=== PATIENT | female | born 1985 | race Caucasian/White ===

== ENCOUNTER 2023-04-08 17:38 | Outpatient (RCR) | payer OTHER, SELFPAY | END 2023-04-08 23:59 | disposition home or self-care (01) | LOC: RPT 17:38 | PROVIDERS: ATTENDING PHYSICIAN Nurse Practitioner | DX: M54.2 Cervicalgia (principal); Z73.6 Limitation of activities due to disability | CPT/HCPCS: 97010; 97110; 97112; 97140 ==

== ENCOUNTER 2023-10-05 13:24 | Emergency (ER) | payer OTHER, SELFPAY ==
[2023-10-05 13:29] VITALS: BP 110/80
--- NOTE | 2023-10-05 14:40 | ED.GENMED ---
History of Present Illness
General
Chief Complaint: DVT/Possible Blood Clot
Time Seen by Provider: 10/05/23 14:40
History of Present Illness
History of Present Illness:
HPI: The patient presents with increasing left lower extremity tightness sensation/pain with questionable swelling over the last few weeks. She also has dyspnea on exertion which is new. She does not smoke. She has a history of factor V Leiden
for which she was tested because she has a strong family history of thromboembolism.
EXAM:
GENERAL: Well appearing in no distress
HEENT: Moist oral mucosa
CARDIOVASCULAR: No murmurs, normal heart rate, regular rhythm, No chest wall tenderness
PULMONARY: No respiratory distress, breath sounds are clear and equal
ABDOMEN: Soft with no peritoneal signs, no tenderness
NEUROLOGIC: Excellent strength all extremities, no coordination deficits
PSYCHIATRIC: Appropriate mental status, normal insight and judgement
EXTREMITIES: Minimal if any tenderness to the left lower extremity, no significant edema, moves all extremities equally
SKIN: No rash, no lesions
TIME OF INITIAL ENCOUNTER: 2:50 PM
NUMBER AND COMPLEXITY OF PROBLEMS ADDRESSED AT THE ENCOUNTER
� Chronic conditions affecting care: Factor V Leiden
� Acute Exacerbation and/or Progression of Chronic Illness: This is an acute problem
� Differential Diagnosis includes: Bronchospasm unlikely as her lungs are clear and equal with no wheeze or decrease sounds, PE possible given her history, anxiety, doubt pneumonia, doubt ACS as her EKG is unremarkable
AMOUNT AND/OR COMPLEXITY OF DATA TO BE REVIEWED AND ANALYZED
� I performed an independent evaluation of and my interpretation is:
EKG: Sinus 70, normal axis, nonspecific ST abnormality not significantly changed from 2014
CT: CTA personally viewed and agree with radiologist interpretation that there is no central PE
X-rays:
Laboratory Studies: CBC and chemistries unremarkable, hCG negative
Other: Ultrasound imaging negative for DVT
� Review of other/old records: The patient has an unremarkable C-spine x-ray other than some mild degenerative disease in 2022
� Clinical information was obtained by an independent historian: None needed
� Prescriptions/Medications Considered but not given:
� Further testing considered but not performed:
RISK OF COMPLICATIONS AND/OR MORBIDITY OR MORTALITY OF PATIENT MANAGEMENT
� Social determinants of health affecting care: Lives at home
� Discussion with other providers:
� Escalation of care including admission/observation vs risk of discharge considered: Will obtain ultrasound imaging but given the associated dyspnea on exertion with clear lungs will obtain CTA as she does have a history of
factor V Leiden. On reassessment at 5:49 PM, the patient overall has an unremarkable ED workup. There is no evidence of DVT/PE. She is to follow-up with primary care doctor. She does not appear to be in any distress at time of discharge.
Past History
Past History
ED Past Medical History: Other (Factor V Leiden deficiency, ovarian cysts)
ED Past Surgical History: Appendectomy
Patient has exhibited threatening behavior?: No
PSI?: No
Social History
Tobacco: Non-smoker
Drug: None
Personal:
Living: with roommate
Employment: Employed
Family History
Family History: Other
Phy Exam
Physical Exam
Physical Exam:
See HPI
Course
Orders/Labs/Results
Orders:
Orders
10/05/23 13:35
Electrocardiogram (*1) Urgent
Reason for Study: Shortness of Breath
EKG- Treatment ONCE
Legs, left US [US Periph Venous LOWER Ext LT] Urgent
Comment:
Reason For Exam: left foot/left calf pain for one week, no injury
10/05/23 14:54
0.9% Sodium Chloride 1000 ml [Nss] 1,000 ml IV BOLUS
10/05/23 14:55
CT Chest Pe Study Urgent
Comment:
Reason For Exam: QUISPE h/o Factor V Leiden
Test Result ONCE
10/05/23 15:27
Basic Metabolic Panel Urgent
Complete Blood Count/With Diff Urgent
HCG, Serum Qualitative Screen Urgent
Abnormal Lab Results
10/05/23
15:27
Glucose 101 H mg/dl
(70-99)
10/05/23 15:27
10/05/23 15:27
Vital Signs
Initial and Last Documented VS:
Initial Vital Signs
Temp Pulse Resp BP Pulse Ox
99.6 F 75 18 110/80 98
10/05/23 13:29 10/05/23 13:29 10/05/23 13:29 10/05/23 13:29 10/05/23 13:29
Last Documented Vital Signs
Temp Pulse Resp BP Pulse Ox
99.6 F 75 18 110/80 98
10/05/23 13:29 10/05/23 13:29 10/05/23 13:29 10/05/23 13:29 10/05/23 13:29
*Critical Care Note
Total Time (30-74mins, 75-104mins- exclusive of procedures): Not Applicable
ED Attending Note
-
Portions of this chart may have been created with voice recognition software.� Occasional wrong word or��sound alike� substitutions may have occurred due to the inherent limitations of voice recognition software.
Discharge Plan
Departure
Patient Disposition: Home (Routine Discharge)
Date of Disposition: 10/05/23
Time of Disposition: 17:46
Patient with high blood pressure during this ER visit?: No
Discharge Problem:
Left leg pain
Prescriptions:
No Action
cetirizine 10 MG tablet
10 mg PO PRN PRN (Reason: allergies)
prednisone 20 mg tablet
20 mg PO BID Qty: 14 0RF
oxycodone 5 mg tablet
5 mg PO Q4H PRN (Reason: pain) Qty: 14 0RF
cyclobenzaprine 10 mg tablet
10 mg PO TID PRN (Reason: muscle spasm) Qty: 20 0RF
Referrals:
Jovita Henning CRNP [Family Provider] -
Activity Restrictions/Additional Instructions:
The cause of your symptoms is unclear. The ultrasound of the left lower extremity shows no blood clot. The CAT scan of the chest shows no blood clot. You are not . Other basic blood work is normal. Your hemoglobin level is normal.
Return here if worse. Follow-up your primary care doctor.
Interventions
Interventions:
*Risk Screen - Suicide Last Done: 10/05/23 13:34
*General Assessment Last Done: 10/05/23 13:34
*Neglect/Abuse Screening Last Done: 10/05/23 13:34
ED- Fall Risk Assessment Last Done: 10/05/23 15:29
ED- Cardiac Assessment Last Done: 10/05/23 15:29
ED- Pulmonary Assessment Last Done: 10/05/23 15:29
ED-Peripheral Vascular Assessment Last Done: 10/05/23 15:29
ED-Skin Assessment Last Done: 10/05/23 15:29
Discharge Date and Time
Print Language: YI
[2023-10-05 15:18] VITALS: BMI 35.3
[2023-10-05] MEDS: NSS 1000 IV (15:27)
[2023-10-05 15:38] LABS: % Eosinophils 2.8 % (0-6); % Immature Granulocytes 0.4 % (0-0.5); % Lymphocytes 35.1 % (20.5-51.1); % Monocytes 7.3 % (1.7-9.3); % Neutrophils 53.4 % (42.2-75.2); Absolute Basophils 0.1 10^3/uL (0-0.2); Absolute Eosinophils 0.2 10^3/uL (0-0.7); Absolute Lymphocytes 2.8 10^3/uL (1.2-3.4); Absolute Monocytes 0.6 10^3/uL (0.1-0.6); Absolute Neutrophils 4.3 10^3/uL (1.4-6.5); Hematocrit 37.6 % (37.0-47.0); Hemoglobin 13.1 g/dL (12.0-16.0); Mean Corp Hgb Conc. 34.8 g/dL (33.0-37.0); Mean Corpuscular Hgb 28.7 pg (27.0-31.0); Mean Corpuscular Volume 82.3 fL (81.0-99.0); Mean Platelet Volume 10.4 fL (7.4-10.4); Nucleated Red Blood Cells % 0 %; Platelet Count 210 10^3/uL (130-400); Red Blood Cell Count 4.57 10^6/uL (4.20-5.40); Red Cell Dist. Width 13.1 % (11.5-14.5)
[2023-10-05 15:48] LABS: HCG, Serum Qualitative Screen Negative
[2023-10-05 15:50] LABS: Blood Urea Nitrogen 12 mg/dl (7-17); Calcium 9.8 mg/dl (8.4-10.2); Carbon Dioxide 27 mmol/L (22-30); Chloride 104 mmol/L (98-107); Estimated Creatinine Clearance > 125 ml/min; Glucose 101 mg/dl (70-99); Sodium 138 mmol/L (135-145); eGFR > 60.00
[2023-10-05 17:59] VITALS: BP 112/77
== END 2023-10-05 18:01 | disposition home or self-care (01) ==
LOC: EMR 13:24
PROVIDERS: EMERGENCY PHYSICIAN Emergency Medicine; FAMILY PHYSICIAN Nurse Practitioner
DX: M79.605 Pain in left leg (principal)
CPT/HCPCS: 99285; 96360; 71275; 80048; 84703; 85025; 93005; 93971; Q9967

== ENCOUNTER → 2023-10-14 15:41 | Outpatient (REF) | payer OTHER, SELFPAY | LOC: HWRAD 15:41 | PROVIDERS: ATTENDING PHYSICIAN Nurse Practitioner | DX: M54.2 Cervicalgia (principal); V89.2XXA Person injured in unspecified motor-vehicle accident, traffic, initial encounter | CPT/HCPCS: 72052 ==

== ENCOUNTER → 2024-03-02 07:47 | Outpatient (REF) | payer OTHER, SELFPAY | LOC: HWRAD 07:47 | PROVIDERS: ATTENDING PHYSICIAN Nurse Practitioner | DX: M79.89 Other specified soft tissue disorders (principal) | CPT/HCPCS: 76705 ==

== ENCOUNTER → 2024-09-06 14:56 | Outpatient (REF) | payer OTHER, SELFPAY | LOC: WDC 14:56 | PROVIDERS: ATTENDING PHYSICIAN Obstetrics & Gynecology Gynecology; FAMILY PHYSICIAN Nurse Practitioner | DX: Z12.31 Encounter for screening mammogram for malignant neoplasm of breast (principal) | CPT/HCPCS: 77063; 77067 ==

== ENCOUNTER → 2024-09-15 08:25 | Outpatient (REF) | payer OTHER, SELFPAY | LOC: WDC 08:25 | PROVIDERS: ATTENDING PHYSICIAN Obstetrics & Gynecology Gynecology; FAMILY PHYSICIAN Nurse Practitioner | DX: R92.8 Other abnormal and inconclusive findings on diagnostic imaging of breast (principal) | CPT/HCPCS: 76642 ==

== ENCOUNTER → 2024-10-29 15:16 | Outpatient (REF) | payer OTHER, SELFPAY | LOC: HWRAD 15:16 | PROVIDERS: ATTENDING PHYSICIAN Physician Assistant Medical | DX: R05.3 Chronic cough (principal); R53.83 Other fatigue | CPT/HCPCS: 71046 ==

== ENCOUNTER 2024-12-10 02:05 | Emergency (ER) | payer OTHER, SELFPAY ==
[2024-12-10 02:24] VITALS: BP 127/85
[2024-12-10 02:40] VITALS: BMI 34.8
[2024-12-10 02:59] LABS: Hematocrit 39.0 % (37.0-47.0); Hemoglobin 13.6 g/dL (12.0-16.0); Mean Corp Hgb Conc. 34.9 g/dL (33.0-37.0); Mean Corpuscular Volume 82.3 fL (81.0-99.0); Nucleated Red Blood Cells % 0 %; Platelet Count 192 10^3/uL (130-400); Red Cell Dist. Width 12.7 % (11.5-14.5)
[2024-12-10 03:00] VITALS: BP 117/77
[2024-12-10 03:25] LABS: Troponin I < 0.012 ng/ml
[2024-12-10 03:34] LABS: ALT (SGPT) 22 U/L (0-35); AST (SGOT) 26 U/L (14-36); Albumin 4.7 g/dl (3.5-5.0); Alkaline Phosphatase 55 U/L (38-126); Blood Urea Nitrogen 14 mg/dl (7-17); Calcium 9.5 mg/dl (8.4-10.2); Carbon Dioxide 22 mmol/L (22-30); Chloride 107 mmol/L (98-107); Estimated Creatinine Clearance > 125 ml/min; Glucose 92 mg/dl (70-99); Potassium 3.9 mmol/L (3.5-5.1); Sodium 138 mmol/L (135-145); Total Protein 7.8 g/dl (6.3-8.2); eGFR > 60.00
[2024-12-10 04:00] VITALS: BP 118/82
[2024-12-10 05:27] LABS: Troponin I < 0.012 ng/ml
--- NOTE | 2024-12-10 05:42 | ED.GENMED ---
History of Present Illness
General
Chief Complaint: Chest Problem
Source: patient
Exam Limitations: none
Time Seen by Provider: 12/10/24 02:56
Nursing documentation reviewed up to this point in time: agreed with
History of Present Illness
History of Present Illness:
Note:
CHIEF COMPLAINT(S)
Severe neck pain, indigestion, nausea, and abdominal distension.
HISTORY OF PRESENT ILLNESS
The patient is a 39-year-old female who has been experiencing neck pain for approximately one week, noting it was particularly severe during a recent holiday weekend. She describes the neck pain as intense and persistent, waking her with severe
shooting pain. In addition to the neck pain, she reported experiencing significant indigestion, nausea, and a feeling of abdominal distension that she described as her belly being 'like a drum.' These symptoms culminated in a notable episode last
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 The patient stated she did not feel quite right all day but felt particularly unwell during the night.
PAST MEDICAL AND SURGICAL HISTORY
The patient has a history significant for factor V Leiden mutation.
CHRONIC MEDICAL CONDITIONS SIGNIFICANTLY AFFECTING CARE
History of factor V Leiden.
SOCIAL DETERMINANTS AFFECTING HEALTH
The patient described job-related stress due to her role as a behavioral school counselors, managing significant work demands and responsibilities.
SOCIAL HISTORY
The patient denies smoking and drug use. She reports minimal alcohol consumption.
REVIEW OF SYSTEMS
- General: Fatigue and general malaise for about a week.
- Gastrointestinal: Nausea and significant indigestion, abdominal distension described as 'like a drum.'
- Musculoskeletal: Severe neck pain, muscle cramps in calves likened to 'Kei horses.'
- Neurological: Described feeling as if �out of body.�
PHYSICAL EXAM
General: Alert, no acute distress.
Skin: Warm, dry.
Head: Normocephalic, atraumatic.
Neck: Musculoskeletal pain on the side, assessed as tight and indicative of muscular strain.
Eye Ears, Nose, Mouth and Throat: Oral mucosa moist.
Cardiovascular: Normal peripheral perfusion, no edema.
Respiratory: Respirations are non-labored.
Gastrointestinal: Abdomen nondistended.
Back: Normal range of motion, normal alignment.
Musculoskeletal: Normal ROM, normal strength.
Neurological: Alert and oriented to person, place, time, and situation, no focal neurological deficit observed.
Psychiatric: Cooperative, appropriate mood & affect.
PROBLEM LIST
- Acute neck pain.
- Indigestion and nausea.
- Abdominal distension.
PLAN
A full assessment is underway, including a focus on musculoskeletal tension. Consideration for muscle relaxants given the described neck tightness, pending further diagnostic information including readings from diagnostic tests like the EKG which
showed a normal sinus rhythm at a rate of 80 with normal intervals and no acute ischemic changes.
DIFFERENTIAL DIAGNOSIS
The Differential Diagnosis includes, in no particular order and is not limited to:
1. Musculoskeletal strain or tension.
2. Gastroesophageal reflux disease.
3. Anxiety/stress-related somatic complaints.
4. Gallbladder disease.
5. Cardiac ischemia.
6. Peptic ulcer disease.
7. Gastroenteritis.
8. Viral syndrome.
9. Pancreatitis.
10. Esophageal spasm or dysmotility.
Disposition:
SUMMARY OF ENCOUNTER
The patient is a 39-year-old female who presented with chest pain. During her evaluation in the emergency department, diagnostic tests, including a troponin test, were performed, and cardiac ischemia was considered. The results showed no acute
ischemic changes, and the patient had normal findings in this context.
DISPOSITION
Discharge home.
ASSESSMENT
The evaluation suggests the chest pain is not of cardiac origin due to negative troponin results and normal diagnostic findings. Chest pain likely due to non-cardiac causes.
INDEPENDENT REVIEW OF LABS AND INTERPRETATION OF TESTS
My independent review of the troponin test indicates it is negative for cardiac ischemia.
MEDICAL DECISION MAKING
1. Number and Complexity of Problems Addressed: Chronic conditions affecting care include a history of factor V Leiden. The differential diagnosis considered includes musculoskeletal strain or tension, gastroesophageal reflux disease,
anxiety/stress-related somatic complaints, gallbladder disease, cardiac ischemia, peptic ulcer disease, gastroenteritis, viral syndrome, pancreatitis, and esophageal spasm or dysmotility.
2. Data:
- Category 1: My independent interpretation of the EKG shows normal sinus rhythm with no acute ischemic changes.
3. Risk: Prescription medication was considered but not deemed necessary at this time. 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
DIAGNOSIS
Chest pain, unspecified (ICD-10: R07.9).
Past History
Past History
ED Past Medical History: Other (Factor V Leiden deficiency, ovarian cysts)
ED Past Surgical History: Appendectomy
Patient has exhibited threatening behavior?: No
PSI?: No
Social History
Tobacco: Non-smoker
Drug: None
Personal:
Living: with roommate
Employment: Employed
Family History
Family History: Other
Review of Systems
Review of Systems
Allergies reviewed?: Yes
All Other Systems: ROS reviewed and negative except as documented in HPI and ROS
Constitutional: Reports no symptoms
EENT: Reports no symptoms
Respiratory: Reports no symptoms
Cardiac: Reports chest pain
ABD/GI: Reports no symptoms
: Reports no symptoms
Musculoskeletal: Reports no symptoms
Skin: Reports no symptoms
Neurological: Reports no symptoms
Endocrine: Reports no symptoms
Hematologic/Lymphatic: Reports no symptoms
Psychiatric: Reports no symptoms
Phy Exam
Physical Exam
Physical Exam:
.
Course
Orders/Labs/Results
Orders:
Orders
12/10/24 02:18
EKG [Electrocardiogram (*1)] Urgent
Reason for Study: Fatigue / Weakness
EKG- Treatment ONCE
12/10/24 02:44
Complete Blood Count/With Diff Urgent
Comprehensive Metabolic Panel Urgent
Troponin I Urgent
12/10/24 04:06
CR Chest - 2 Views Urgent
Comment:
Reason For Exam: cp
12/10/24 04:30
Electrocardiogram (*1) Urgent
Reason for Study: Chest Pain
EKG- Treatment ONCE
12/10/24 04:34
Troponin I Urgent
Abnormal Lab Results
12/10/24
02:44
Absolute Monos (auto) 0.9 H 10^3/uL
(0.1-0.6)
12/10/24 02:44
12/10/24 02:44
Vital Signs
Initial and Last Documented VS:
Initial Vital Signs
Temp Pulse Resp BP Pulse Ox
98.7 F 83 18 127/85 96
12/10/24 02:24 12/10/24 02:24 12/10/24 02:24 12/10/24 02:24 12/10/24 02:24
Last Documented Vital Signs
Temp Pulse Resp BP Pulse Ox
98.7 F 73 19 118/82 100
12/10/24 02:24 12/10/24 04:00 12/10/24 04:00 12/10/24 04:00 12/10/24 05:45
*Pulse Oximetry
SaO2: 95
Oxygen Mode of Delivery: Room air
Patient hypoxic: no
*Critical Care Note
Total Time (30-74mins, 75-104mins- exclusive of procedures): Not Applicable
ED Attending Note
-
Portions of this chart may have been created with voice recognition software.� Occasional wrong word or��sound alike� substitutions may have occurred due to the inherent limitations of voice recognition software.
Discharge Plan
Departure
Patient Disposition: Home (Routine Discharge)
Date of Disposition: 12/10/24
Time of Disposition: 05:44
Patient with high blood pressure during this ER visit?: No
Discharge Problem:
Abdominal pain, Musculoskeletal deformity
Prescriptions:
No Action
cetirizine 10 MG tablet
10 mg PO PRN PRN (Reason: allergies)
prednisone 20 mg tablet
20 mg PO BID Qty: 14 0RF
oxycodone 5 mg tablet
5 mg PO Q4H PRN (Reason: pain) Qty: 14 0RF
cyclobenzaprine 10 mg tablet
10 mg PO TID PRN (Reason: muscle spasm) Qty: 20 0RF
Referrals:
Jovita Henning CRNP [Family Provider, Family Practice]
Interventions
Interventions:
*Risk Screen - Suicide Last Done: 12/10/24 02:24
*General Assessment Last Done: 12/10/24 02:49
*Neglect/Abuse Screening Last Done: 12/10/24 02:49
*ED- Fall Risk Assessment Last Done: 12/10/24 02:49
*ED COVID-19 Vaccine History Last Done: 12/10/24 02:49
ED- Cardiac Assessment Last Done: 12/10/24 03:00
ED- Pulmonary Assessment Last Done: 12/10/24 03:00
Discharge Date and Time
Print Language: SPANISH
[2024-12-10 05:58] VITALS: BP 117/78
== END 2024-12-10 06:09 | disposition home or self-care (01) ==
LOC: EMR 02:05
PROVIDERS: EMERGENCY PHYSICIAN Student in an Organized Health Care Education/Training Program; FAMILY PHYSICIAN Nurse Practitioner
DX: R10.9 Unspecified abdominal pain (principal); M54.2 Cervicalgia; R11.0 Nausea; D68.51 Activated protein C resistance; Z90.49 Acquired absence of other specified parts of digestive tract; M95.8 Other specified acquired deformities of musculoskeletal system
CPT/HCPCS: 99285; 71046; 80053; 84484; 85025; 93005